=== PATIENT | male | born 1960 | race Native Hawaiian/Other Pacific Islander ===

== ENCOUNTER 2017-04-14 10:25 | Observation (INO) | payer OTHER ==
--- NOTE | 2017-04-14 10:44 | C.PDOC ---
History Of Present Illness 56M c/o chest pain that started around 915am today, "burning" lasting only 2 to 3 minutes. prior to that he had an episode of lightheadedness which started around 845am and lasted for some time, accompanied by nausea, sob, and episode of vomiting. he lied down at that time. he felt better after vomiting. he also felt some pain in his upper back which he does get with his stable angina. no sx currently. reports hx of stable angina- had angio 10 years ago which showed "OM3 obstruction" but no large vessel disease. he took 150mg asa this am. Time Seen by Provider: 04/14/17 10:26 Chief Complaint (Nursing): Dizziness/Lightheaded Past Medical History Vital Signs: Last Vital Signs Temp 97.8 F 04/14/17 12:14 Pulse 66 04/14/17 12:14 Resp 18 04/14/17 12:14 BP 147/92 H 04/14/17 12:14 Pulse Ox 99 04/14/17 12:47 - Medical History PMH: Depression, Sleep Apnea Family History: States: Other Other Family History: nc - Social History Hx Alcohol Use: No Hx Substance Use: No Review Of Systems Except As Marked, All Systems Reviewed And Found Negative. Constitutional: Negative for: Fever, Chills Cardiovascular: Positive for: Chest Pain, Light Headedness Respiratory: Positive for: Shortness of Breath. Negative for: Cough, Hemoptysis Gastrointestinal: Positive for: Nausea, Vomiting. Negative for: Abdominal Pain Neurological: Negative for: Weakness, Numbness Physical Exam - Physical Exam Appears: Well, Non-toxic, No Acute Distress Skin: Warm, Dry Head: Atraumatic Eye(s): bilateral: PERRL Nose: No Epistaxis Oral Mucosa: Moist Neck: Normal ROM Cardiovascular: Rhythm Regular, No Murmur Respiratory: No Decreased Breath Sounds, No Accessory Muscle Use, No Rales, No Rhonchi, No Wheezing Gastrointestinal/Abdominal: Soft, No Tenderness Extremity: No Calf Tenderness, No Swelling Pulses: Left Radial: Normal, Right Radial: Normal Neurological/Psych: Oriented x3, Normal Motor, Normal Sensation, Other (no focal deficits) ED Course And Treatment - Laboratory Results Result Diagrams: 04/14/17 11:06 04/14/17 11:06 O2 Sat by Pulse Oximetry: 99 Medical Decision Making Medical Decision Making: ecg- nsr 67, nonspec t wave abn, no stemi Disposition - Disposition Disposition: HOSPITALIZED Disposition Time: 12:47 Condition: STABLE - Clinical Impression Clinical Impression: Chest pain
[2017-04-14 11:15] LABS: BASO # 0.1 K/uL (0.0-0.2); BASO % 0.6 % (0.0-2.0); EOS # 0.1 K/uL (0.0-0.7); EOS % 1.8 % (0.0-4.0); HEMATOCRIT 40.7 % (35.0-51.0); LYMPH # 1.8 K/uL (1.0-4.3); LYMPH % 21.5 % (20.0-40.0); MEAN CELL VOLUME 91.3 fL (80.0-94.0); MEAN CORPUSCULAR HEMOGLOBIN 30.8 pg (27.0-31.0); MEAN CORPUSCULAR HGB CONC 33.7 g/dL (33.0-37.0); MEAN PLATELET VOLUME 9.3 fL (7.2-11.7); MONO # 0.6 K/uL (0.0-0.8); MONO % 6.8 % (0.0-10.0); RED CELL DISTRIBUTION WIDTH 12.1 % (11.5-14.5); WHITE BLOOD COUNT 8.2 K/uL (4.8-10.8)
[2017-04-14 11:21] LABS: CHLORIDE 100 mmol/L (98-107); SODIUM 136 mmol/L (132-148)
[2017-04-14 11:22] LABS: POTASSIUM 3.6 mmol/L (3.6-5.2)
[2017-04-14 11:24] LABS: ALB/GLOB RATIO 1.6 (1.0-2.1); ALKALINE PHOSPHATASE 51 U/L (38-126); ALT/SGPT 33 U/L (21-72); AST/SGOT 25 U/L (17-59); BILIRUBIN,TOTAL 0.8 mg/dL (0.2-1.3); BLOOD UREA NITROGEN 10 mg/dL (9-20); CARBON DIOXIDE 26 mmol/L (22-30); GFR AFRICAN-AMERICAN > 60; GLUCOSE,RANDOM 134 mg/dL (75-110); TOTAL PROTEIN 6.5 g/dL (6.3-8.3)
[2017-04-14 11:25] LABS: CALCIUM 8.5 mg/dl (8.6-10.4)
--- NOTE | 2017-04-14 11:47 | RAD ---
HISTORY: cp COMPARISON: No prior. FINDINGS: LUNGS: No active pulmonary disease. PLEURA: No significant pleural effusion identified, no pneumothorax apparent. CARDIOVASCULAR: Normal. OSSEOUS STRUCTURES: No significant abnormalities. VISUALIZED UPPER ABDOMEN: Normal. OTHER FINDINGS: None. IMPRESSION: No active disease.
--- NOTE | 2017-04-14 13:50 | CP.PCM.HP ---
History of Present Illness - History of Present Illness History of Present Illness: COMPREHENSIVE HISTORY & PHYSICAL EXAM HPI 56M c/o chest pain that started around 915am today, "burning" lasting only 2 to 3 minutes. prior to that he had an episode of lightheadedness which started around 845am and lasted for some time, accompanied by nausea, sob, and episode of vomiting. he lied down at that time. he felt better after vomiting. he also felt some pain in his upper back which he does get with his stable angina. no sx currently. reports hx of stable angina- had angio 10 years ago which showed CX,OM LESION NO RECENT CARDIAC W/U PAST HIST. CAD PERSONAL HIST: Smoking. N Alcohol. N Allergy N Travel_- . FAMILY HIST : ROS : Constitutional: Negative for weight change, chills, night sweats, fatigue and usage of assist device. Eyes: Negative for redness, swelling, itching, discharge, vision changes, blurry vision, double vision, glaucoma, cataracts, Ears: Negative for hearing loss, ringing, , tinnitus, vertigo Nose: Negative for rhinorrhea, stuffiness, sniffing, itching, postnasal drip, discoloration, nasal congestion and epistaxis. Throat: Negative for throat clearing, sore throat, hoarseness, difficulty swallowing and difficulty speaking. Respiratory: Negative for cough, chest tightness, sputum or phlegm, chronic cough, hemoptysis, wheezing, snoring at night, pleuritic chest pain and daytime somnolence. Cardiovascular: POS for chest pain, palpitations, orthopnea, NO PND, Edema of legs, leg cramps, angina, claudication, , irregular heartbeat, Neurology: Negative for irritability, muscle weakness, numbness and tingling, seizures, tremors, migraines, slurred speech, syncope, memory loss, mood changes , recurrent headaches Gastrointestinal: Negative for difficulty swallowing, diarrhea, constipation, black stools, rectal bleeding, nausea, flatulence, reflux, poor appetite, changes in bowel habits, abdominal pain Genitourinary: Negative for frequent urination, hematuria, discharge, incontinence, urinary retention, frequent UTI, Psychiatric: Negative for depression, anxiety/panic, suicidal tendencies, Musculoskeletal: Negative for swollen joints, back pain, , neck pain, morning stiffness of joints, . Skin: Negative for rash, ulcers, itching, dry skin and pigmented lesions. P/E: Constitutional: Appears stated age and in no apparent distress. Head: Normocephalic. Ears: External ear canals patent without inflammation. Tympanic membranes intact with normal light reflex and landmark. Eyes: Pupils are central, bilaterally equal, symmetrical and reacts to light with normal movements and no icterus or pallor. Nose: External nares are patent. Mucosa is pink Mouth-Throat: Good general appearance and condition. No post-pharyngeal/oropharyngeal erythema and tonsillar hypertrophy. Good dental hygiene. Neck-Lymphatic: Neck is supple with normal ROM, no thyromegaly, lymph nodes or masses. JVD is normal with no carotid bruit. Lungs: Clear to percussion and auscultation with bilateral normal air entry. Cardiovascular: S1 and S2 are normal with no murmurs, gallops and rub. GI Exam: No hepatomegaly. Abdomen is soft and non-tender. No Organomegaly , masses or hernias are evident and bowel sounds are normal and active. Neurology: Higher function and all cranial nerves intact, with no gross motor or sensory deficit. Superficial and deep reflexes are normal with downwards planters. No cerebellar deficit with normal gait. Musculoskeletal: No tender spots with normal curvature of the spine with no swelling or restricted ROM of the small and large joints. Extremities: Homans sign absent. Intact pulses with no pitting edema, calf tenderness or skin color changes. Skin: No rash, eruptions or abnormal skin pigmentation LAB/RADIOLOGY: ASSESMENT : UNSTABLE ANGINA H/O CAD PLAN: CARDIAC MONITORING Present on Admission - Present on Admission Any Indicators Present on Admission: No Past Patient History - Past Social History Smoking Status: Never Smoked - CARDIAC Hx Cardiac Disorders: Yes Hx Angina: Yes - PULMONARY Hx Sleep Apnea: Yes - PSYCHIATRIC Hx Depression: Yes Hx Substance Use: No - SURGICAL HISTORY Hx Surgeries: Yes Hx Angiogram: Yes Meds Allergies/Adverse Reactions: Allergies Allergy/AdvReac Type Severity Reaction Status Date / Time No Known Allergies Allergy Verified 04/14/17 10:35 Results - Vital Signs Recent Vital Signs: Last Vital Signs Temp 97.8 F 04/14/17 12:14 Pulse 66 04/14/17 12:14 Resp 18 04/14/17 12:14 BP 147/92 H 04/14/17 12:14 Pulse Ox 99 04/14/17 12:48 - Labs Result Diagrams: 04/14/17 11:06 04/14/17 11:06
[2017-04-14] MEDS: Enoxaparin 30 mg Syringe SC SCH ×2 (15:03→21:50)
[2017-04-15 00:35] VITALS: RESP 20
[2017-04-15] MEDS: Enoxaparin 30 mg Syringe SC SCH (10:34)
--- NOTE | 2017-04-15 13:38 | CP.PCM.DIS ---
Provider - Provider Date of Admission: 04/14/17 12:48 Attending physician: Beto Franks MD Time Spent in preparation of Discharge (in minutes): 30 Hospital Course - Lab Results Lab Results: Most Recent Lab Values WBC 8.2 K/uL (4.8-10.8) 04/14/17 11:06 RBC 4.46 Mil/uL (4.40-5.90) 04/14/17 11:06 Hgb 13.7 g/dL (12.0-18.0) 04/14/17 11:06 Hct 40.7 % (35.0-51.0) 04/14/17 11:06 MCV 91.3 fL (80.0-94.0) 04/14/17 11:06 MCH 30.8 pg (27.0-31.0) 04/14/17 11:06 MCHC 33.7 g/dL (33.0-37.0) 04/14/17 11:06 RDW 12.1 % (11.5-14.5) 04/14/17 11:06 Plt Count 208 K/uL (130-400) 04/14/17 11:06 MPV 9.3 fL (7.2-11.7) 04/14/17 11:06 Neut % (Auto) 69.3 % (50.0-75.0) 04/14/17 11:06 Lymph % (Auto) 21.5 % (20.0-40.0) 04/14/17 11:06 [place] % (Auto) 6.8 % (0.0-10.0) 04/14/17 11:06 Eos % (Auto) 1.8 % (0.0-4.0) 04/14/17 11:06 Baso % (Auto) 0.6 % (0.0-2.0) 04/14/17 11:06 Neut # 5.7 K/uL (1.8-7.0) 04/14/17 11:06 Lymph # 1.8 K/uL (1.0-4.3) 04/14/17 11:06 [place] # 0.6 K/uL (0.0-0.8) 04/14/17 11:06 Eos # 0.1 K/uL (0.0-0.7) 04/14/17 11:06 Baso # 0.1 K/uL (0.0-0.2) 04/14/17 11:06 D-Dimer, Quantitative < 200 ng/mlDDU (0-243) 04/14/17 11:06 Sodium 136 mmol/L (132-148) 04/14/17 11:06 Potassium 3.6 mmol/L (3.6-5.2) 04/14/17 11:06 Chloride 100 mmol/L (98-107) 04/14/17 11:06 Carbon Dioxide 26 mmol/L (22-30) 04/14/17 11:06 Anion Gap 13 (10-20) 04/14/17 11:06 BUN 10 mg/dL (9-20) 04/14/17 11:06 Creatinine 0.8 MG/DL (0.8-1.5) 04/14/17 11:06 Est GFR ( Amer) > 60 04/14/17 11:06 Est GFR (Non-Af Amer) > 60 04/14/17 11:06 Random Glucose 134 mg/dL (75-110) H 04/14/17 11:06 Calcium 8.5 mg/dl (8.6-10.4) L 04/14/17 11:06 Total Bilirubin 0.8 mg/dL (0.2-1.3) 04/14/17 11:06 AST 25 U/L (17-59) 04/14/17 11:06 ALT 33 U/L (21-72) 04/14/17 11:06 Alkaline Phosphatase 51 U/L (38-126) 04/14/17 11:06 Total Creatine Kinase 69 U/L (55-170) 04/15/17 07:11 CK-MB (Mass) 0.43 ng/mL (0.0-3.38) 04/15/17 07:11 Troponin I < 0.0120 ng/mL (0.00-0.120) 04/14/17 11:06 Troponin I, Quant < 0.0120 ng/mL (0.00-0.120) 04/15/17 07:11 Total Protein 6.5 g/dL (6.3-8.3) 04/14/17 11:06 Albumin 4.0 g/dL (3.5-5.0) 04/14/17 11:06 Globulin 2.5 gm/dL (2.2-3.9) 04/14/17 11:06 Albumin/Globulin Ratio 1.6 (1.0-2.1) 04/14/17 11:06 - Hospital Course Hospital Course: 56M c/o chest pain that started around 915am today, "burning" lasting only 2 to 3 minutes. prior to that he had an episode of lightheadedness which started around 845am and lasted for some time, accompanied by nausea, sob, and episode of vomiting. he lied down at that time. he felt better after vomiting. he also felt some pain in his upper back which he does get with his stable angina. no sx currently. reports hx of stable angina- had angio 10 years ago which showed CX,OM LESION NO RECENT CARDIAC W/U 3 SETS OF CARDIAC ENX WERE NEG EKG NO NEW CHANGES PT HAS MORE OF VERTIGO SEC TO WATER IN THE EAR PT IS ANXIOUS TO RETURN TO [facility] WILL D/C ADV TO F/U WITH MY OFFICE NEXT WEEK FOR STRESS TEST Discharge Plan - Follow Up Plan Condition: STABLE Disposition: HOME/ ROUTINE
[2017-04-15 16:31] VITALS: BP 144/88; TEMP 98.5; O2SAT 96
[2017-04-15 18:28] VITALS: PULSE 72
--- NOTE | 2017-04-18 12:18 | CARD ---
APPROVED REPORT EKG Measurement Heart [id number] <Conclusion> Normal sinus rhythm Nonspecific T wave abnormality Abnormal ECG
--- NOTE | 2017-04-18 12:43 | CARD ---
APPROVED REPORT EKG Measurement Heart [id number] [place] [id number] <Conclusion> Normal sinus rhythm Nonspecific T wave abnormality Abnormal ECG
== END 2017-04-15 17:30 | disposition home or self-care (01) ==
LOC: C.ER 10:25 → C.9E 12:48 → C.5T 14:16
PROVIDERS: ADMIT Internal Medicine Cardiovascular Disease; ATTEND Internal Medicine Cardiovascular Disease
DX: I25.110 Atherosclerotic heart disease of native coronary artery with unstable angina pectoris (principal); G47.30 Sleep apnea, unspecified; F41.9 Anxiety disorder, unspecified
CPT/HCPCS: 36415; 71010; 80053; 84484; 85025; 85378; 96372; 99285; G0378; J1650